=== PATIENT | female | born 1935 | race Caucasian/White ===

== ENCOUNTER → 2016-12-04 | Outpatient (CLI) | payer MEDICARE, BC ==
[~2016-12-04] MED LIST: ASPIRIN PO; BIOTIN PO; CENTRUM PO; DYAZIDE 37.5/251 CAP PO; FISH OIL PO; GLUCOPHAGE XR500 MG PO; MICRONASE5 M2; OSTEO BIFLEX PO; VIT E PO; VITAMINE C PO; ZOCOR PO
--- NOTE | ~2016-12-04 | CT2 ---
[facility] A Service [facility] RADIOLOGY TEXT RESULTS PATIENT: JOSHUA CAMPOS LOCATION: [facility] : 35 UNIT #: [id number] AGE: [address]: Charline Masterson MD SEX: F ORDER DR: [id number] [address] [address] [id number] O MR#: [id number] Acc #: [id number] NAME: JOSHUA CAMPOS. : 1935 SEX: F STUDY DATE/TIME: 12/04/2016 8:11 [facility] RO[facility]: STUDY DESCRIPTION: CT Abd and Pelv W Cont Attending Physician: Charline Masterson M.D. Referring Physician: Charline Masterson M.D. Ordering Physician: Charline Masterson M.D. Primary Care Physician: Charline Masterson M.D. MEDICAL IMAGING REPORT This report is preliminary unless electronic signature is present EXAM CT abdomen and pelvis with contrast INDICATIONS Generalized abdominal pain for the past 2-3 months. Pain particularly in the mid upper abdomen. PROCEDURE Contrast-enhanced CT of the abdomen and pelvis. This CT exam was performed with one or more of the following radiation dose reduction techniques: automatic exposure control, adjustment of mA and/or kV according to patient size, and iterative reconstruction. COMPARISON None FINDINGS Abdomen with contrast: Included lung bases are clear. Liver, spleen, kidneys, adrenal glands, pancreas unremarkable. Previous cholecystectomy. Moderate colonic stool. Atherosclerotic irregularity abdominal aorta with ectasia of the infrarenal segment measuring up to 2.7 cm. Pelvis with contrast: No pelvic mass or fluid. No aggressive appearing bone lesion. IMPRESSION 1. No acute findings. 2. 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 [facility] A Service [facility] RADIOLOGY TEXT RESULTS PATIENT: JOSHUA CAMPOS LOCATION: [facility] : 35 UNIT #: [id number] AGE: [address]: Charline Masterson MD SEX: F ORDER DR: Dictated by... Bo Ruby M.D. THIS IS AN ELECTRONICALLY VERIFIED REPORT Bo Ruby M.D. at 12/05/2016 9:38 AM OSCAR/jared TD: 12/04/2016 10:02 JOB #: [id number] MEDICAL IMAGING REPORT Page 1 of 1 COPY
[2016-12-04 07:15] LABS: POC - CREATININE 0.83 mg/dL (0.44-1.03); POC - GFR >60.0 mL/min (>60)
== END | disposition home or self-care (01) ==
LOC: CCAT 06:19
PROVIDERS: Family Medicine
DX: R10.84 Generalized abdominal pain (principal); I70.0 Atherosclerosis of aorta; I77.811 Abdominal aortic ectasia
CPT/HCPCS: 74177; 82565; Q9967

== ENCOUNTER → 2016-12-30 | Day surgery (SDC) | payer MEDICARE, BC ==
--- NOTE | ~2016-12-30 | OR ---
Unit #: [id number] #: [id number] Patient: JOSHUA CAMPOS [id number] [address] [place], [place] [address] [id number] O MR#: [id number] NAME: JOSHUA CAMPOS. ROOM: Date of Procedure: 12/30/2016 Admission Date: 12/30/2016 Surgeon: Zhao Valerio M.D. : 1935 Attending Physician: Zhao Valerio M.D. Primary Care Physician: Charline Masterson M.D. OPERATIVE REPORT PREOPERATIVE DIAGNOSES The patient has presented with upper abdominal pain. This is felt like a bandlike pain in the entire upper abdomen subcostal area and epigastric area. In addition, she has lost about 20 pounds of weight. The patient also mentions anorexia. She has come for elective upper endoscopy and a colonoscopy. PROCEDURES PERFORMED Upper gastrointestinal endoscopy and biopsy as well as colonoscopy with polypectomy. POSTOPERATIVE DIAGNOSES For upper endoscopy: Completely normal examination up to third part of duodenum. Biopsy was obtained the antrum for CLOtest. In addition, biopsies were obtained from the deep descending duodenal folds to look for any evidence of partial villous atrophy or celiac disease. For colonoscopy: 1. Scant sigmoid and descending colon diverticulosis. 2. A total of six polyps were found, three in the descending colon, one in the transverse colon, and two in the sigmoid colon. All the polyps were sessile and were removed using snare polypectomy. They ranged in size from 5 mm to a centimeter each. 3. Rest of the examination up to cecum was normal. The quality of the prep was excellent. The patient did have bluish coloration of proximal transverse colon due to previous tattooing of the area from remote polypectomy. The mucosa here was completely normal. RECOMMENDATIONS There is no potential pathology in the upper gastrointestinal tract in the colon to explain the patient's symptomatology. Incidentally, her CAT scan of the abdomen is also normal. A repeat CBC, CMP, amylase, and lipase is being done today. She will be followed up in the office in 6 to 8 weeks' time. The patient is being advised to use Glucerna three cans a day. SEDATION USED MAC. DESCRIPTION OF PROCEDURE Following detailed explanation of the potential risks and complications of a colonoscopy and an upper endoscopy, namely perforation, bleeding, and complication related to sedation, the patient was brought to GI lab and Unit #: [id number] #: [id number] Patient: JOSHUA CAMPOS laid in the left lateral decubitus position. Lubricated tip of the Olympus video upper endoscope was passed through the bite block into the proximal esophagus under direct vision. The entire esophageal mucosa was examined and appeared normal. Z-line was nicely demarcated, there being no esophagitis or hiatus hernia. The scope was advanced into the gastric cavity and the latter was insufflated. Mucosa of the fundus, body, and antrum was examined and appeared unremarkable. Pylorus was intubated with visualization of the normal duodenal bulb and second and third part of the duodenum. Biopsies were obtained from the deep descending duodenal folds to look for any evidence of partial villous atrophy or celiac disease. Upon withdrawal and retroflexion, incisura, cardia, and greater curve was examined and biopsy was obtained from the antrum for CLOtest. The scope was then withdrawn in the distal esophagus. The entire esophageal mucosa was examined all the way up to pharynx. No additional findings were noted. The examination table was then turned by 180 degrees and the patient was positioned for a colonoscopy. A digital rectal examination was performed which was normal. Lubricated tip of the Olympus video colonoscope was inserted through the anus and advanced under direct vision. The scope was advanced past rectosigmoid into descending colon. Scant small diverticula were seen in this area. The scope tip was then navigated all the way up to cecum with visualization of the ileocecal valve and the appendiceal orifice. Preparation was excellent with good visualization and photodocumentation was obtained. Successive segments of the colonic mucosa were examined upon withdrawal. Polyps were seen during antegrade examination as well as during withdrawal phase examination. A total of six polyps were found and removed, three in the descending colon, one in the transverse colon, and two in the sigmoid colon. They ranged in size from 5 mm to a centimeter each. All the polyps were retrieved and sent for histology. Other than the scant diverticula, no other abnormalities were noted. The patient did not have any internal hemorrhoids at the anal verge. The scope was then withdrawn and the patient returned to the recovery area. She tolerated the procedure without any postprocedure complications. Dictated by.Loc. Davis Bronson/kaela TD: 12/30/2016 09:59 JOB #: [id number] OPERATIVE REPORT Page 1 of 1 X Zhao Valerio MD PROCEDURE OPERATIVE NOTE
[2016-12-30 08:44] LABS: BASOPHIL# 0.1 X10e3 (0-0.3); EOSINOPHIL# 0.1 X10e3 (0-0.7); EOSINOPHIL% 1.6 % (0.0-7.0); HEMOGLOBIN 14.8 gm/dL (12.0-16.0); LYMPHOCYTE# 1.6 X10e3 (1.0-3.5); LYMPHOCYTE% 27.3 % (17.0-45.0); MEAN CELL VOLUME 90.5 FL (83-96); MEAN CORPUSCULAR HEMOGLOBIN 30.5 PG (28-34); MEAN CORPUSCULAR HGB CONC 33.7 g/dL (30-36); MONOCYTE# 0.6 X10e3 (0-1.0); MONOCYTE% 9.6 % (3.0-12.0); NEUTROPHIL# 3.6 X10e3 (1.5-7.1); NEUTROPHIL% 60.5 % (40-75); PLATELET COUNT 170 X10e3 (140-420); RED BLOOD COUNT 4.87 X10e (3.90-5.30); RED CELL DISTRIBUTION WIDTH 13.2 % (11.0-15.5); WHITE BLOOD COUNT 5.9 X10e3 (4.0-10.5)
[2016-12-30 08:46] LABS: DIFF IND NO
[2016-12-30 09:32] LABS: BILIRUBIN,TOTAL 1.3 mg/dL (0.2-2.0); CALCIUM SERUM 9.9 mg/dL (8.4-10.2); CREATININE SERUM 0.4 mg/dL (0.6-1.4); GLOM FILT RATE Estimated 97.7 mL/min (>60); POTASSIUM 4.7 mmol/L (3.5-5.1); PROTEIN TOTAL SERUM 6.5 g/dL (6.0-8.3)
== END | disposition home or self-care (01) ==
LOC: COPS 06:02
PROVIDERS: Internal Medicine Gastroenterology
DX: K29.80 Duodenitis without bleeding (principal); K63.5 Polyp of colon; K57.30 Diverticulosis of large intestine without perforation or abscess without bleeding; I71.9 Aortic aneurysm of unspecified site, without rupture; K21.9 Gastro-esophageal reflux disease without esophagitis; E11.9 Type 2 diabetes mellitus without complications; I10 Essential (primary) hypertension; Z90.89 Acquired absence of other organs; Z90.49 Acquired absence of other specified parts of digestive tract; Z79.82 Long term (current) use of aspirin; Z79.899 Other long term (current) drug therapy; Z86.73 Personal history of transient ischemic attack (TIA), and cerebral infarction without residual deficits
CPT/HCPCS: 80053; 82150; 82947; 83690; 85025; 87077; 88305

== ENCOUNTER → 2017-02-26 | Outpatient (CLI) | payer MEDICARE, BC ==
--- NOTE | ~2017-02-26 | CT71 ---
[facility] A Service [facility] RADIOLOGY TEXT RESULTS PATIENT: JOSHUA CAMPOS LOCATION: [facility] : 35 UNIT #: [id number] AGE: [address]: Charline Masterson MD SEX: F ORDER DR: [id number] [place], [place] [address] [id number] O MR#: [id number] Acc #: [id number] NAME: JOSHUA CAMPOS. : 1935 SEX: F STUDY DATE/TIME: 02/26/2017 16:08 UNIT: [facility] ROOM: STUDY DESCRIPTION: CT Head Wo Contrast Attending Physician: Charline Masterson M.D. Ordering Physician: Charline Masterson M.D. Primary Care Physician: Charline Masterson M.D. MEDICAL IMAGING REPORT This report is preliminary unless electronic signature is present EXAM Head CT no contrast DATE OF STUDY 02/26/2017 PROCEDURE Axial unenhanced head CT. This CT exam was performed with one or more of the following radiation dose reduction techniques: Automatic exposure control, adjustment of mA and/or kV according to patient size, and iterative reconstruction. COMPARISON None. CLINICAL HISTORY Gait disturbance, headache, and loss of balance for 3 months. FINDINGS The skull base and calvarium are remarkable only for slight right sphenoid mucosal thickening. There is an area of right hemispheric encephalomalacia involving the region of the confluence of the temporal, occipital, and parietal lobes, and there is some slight nonspecific periventricular white matter change. However, there is no hemorrhage or mass or hydrocephalus or extraaxial fluid collection. There are intracranial atherosclerotic vascular calcifications but the extracranial soft tissues are normal. IMPRESSION Right temporal/parietal/occipital cortical encephalomalacia, minimal nonspecific white matter change; otherwise, negative unenhanced head CT. [facility] A Service [facility] RADIOLOGY TEXT RESULTS PATIENT: JOSHUA CAMOPS LOCATION: [facility] : 35 UNIT #: [id number] AGE: [address]: Charline Masterson MD SEX: F ORDER DR: Dictated by... Steve Herrera M.D. THIS IS AN ELECTRONICALLY VERIFIED REPORT Steve Herrera M.D. at 02/27/2017 4:26 PM TEV/aa TD: 02/27/2017 09:30 JOB #: [id number] MEDICAL IMAGING REPORT Page 1 of 1 COPY
== END | disposition home or self-care (01) ==
LOC: CCAT 15:39
DX: R26.9 Unspecified abnormalities of gait and mobility (principal); R51 Headache; G93.89 Other specified disorders of brain
CPT/HCPCS: 70450